=== PATIENT | female | born 1995 | race Hispanic/Latino ===

== ENCOUNTER 2019-12-30 04:54 | Emergency (ER) | payer SELFPAY ==
[~2019-12-30] VITALS: Ht 160 cm; Wt 90.7 kg
[2019-12-30] MEDS ORDERED: SODIUM CHLORIDE 0.9% 1000ML 1,000 ML IV STA (05:08)
--- NOTE | 2019-12-30 05:14 | Emergency Department Note ---
History of Present Illnes History of Present Illness History of Present Illness This is a 24 year old female . Historian: Patient, Significant Other Arrival Mode: Car Onset (how long ago): day(s) Radiation: Reports back Severity: moderate Onset quality: gradual Duration (how long): day(s) (3) Timing of current episode: intermittent Progression: worsening Relieving factors: none Exacerbating factors: none Associated symptoms: Reports denies other symptoms, Reports loss of appetite, Reports nausea/vomiting Treatments prior to arrival: none Past Medical/Family History Physician Review I have reviewed the patient's past medical and family history. Any updates have been documented here. Past Medical History Recent Fever: No Clinical Suspicion of Infectio: No New/Unexplained Change in Ment: No Past Medical History: None Past Surgical History: None Social History Unable to obtain PSH: other (works at [employer]) Smoking Cessation: Never Smoker Counseling Performed: No Any Illegal Drug Use: No TB Exposure/Symptoms: No Physically hurt or threatened: No Family History Family history of heart diseas: No Review of Systems Review of Systems Constitutional: Reports weakness EENTM: Reports no symptoms Cardiovascular: Reports no symptoms Respiratory: Reports no symptoms Gastrointestinal: Reports as per HPI Genitourinary: Reports no symptoms Musculoskeletal: Reports no symptoms Integumentary: Reports no symptoms Neurological: Reports no symptoms Psychological: Reports no symptoms Endocrine: Reports no symptoms Hematological/Lymphatic: Reports no symptoms Physical Exam Related Data Allergies: Coded Allergies: No Known Allergies (Unverified , 12/30/19) Vital signs reviewed: Yes Physical Exam CONSTITUTIONAL Constitutional: Present well-developed, Present well-nourished HENT HENT: Present normocephalic, Present atraumatic, Present oropharynx clear/moist, Present nose normal HENT L/R: Present left ext ear normal, Present right ext ear normal EYES Eyes: Reports PERRL, Reports conjunctivae normal NECK Neck: Present ROM normal PULMONARY Pulmonary: Present effort normal, Present breath sounds normal CARDIOVASCULAR Cardiovascular: Present regular rhythm, Present heart sounds normal, Present capillary refill normal, Present normal rate GASTROINTESTINAL Abdominal: Present soft, Present nontender, Present bowel sounds normal GENITOURINARY Genitourinary: Present exam deferred SKIN Skin: Present warm, Present dry MUSCULOSKELETAL Musculoskeletal: Present ROM normal NEUROLOGICAL Neurological: Present alert, Present oriented x 3, Present no gross motor or sensory deficits PSYCHOLOGICAL Psychological: Present mood/affect normal, Present judgement normal Results Laboratory Lab results reviewed: Yes Laboratory comments UA clear,doubt UTI, WBC high due to n/v Imaging Imaging results reviewed: Yes Impressions No acute Assessment & Plan Medical Decision Making MDM gastritis, enteritis, pancreatitis Reassessment Reassessment doing better, taking PO well Assessment & Plan Final Impression: (1) Gastroenteritis Depart Disposition: HOME, SELF-shelter Meds Active Scripts Mag Hydrox/Al Hydrox/Simeth (MAALOX MAXIMUM STRENGTH SUSP) 355 Ml Oral.susp, 30 ML PO Q6H PRN for ABDOMINAL PAIN, #120 ML Prov:FRANKY MERIDA MD 12/30/19 Ondansetron Hcl* (ZOFRAN*) 4 Mg Tablet, 4 MG SL Q6H PRN for NAUSEA, #14 MG 0 Refills Prov:FRANKY MERIDA MD 12/30/19 Famotidine (FAMOTIDINE) 20 Mg Tab, 1 TAB PO BID, #30 Prov:FRANKY MERIDA MD 12/30/19 Physician Attestation Provider Attestation taking po well, no acute abdomen, pt can be safely d/c FRANKY MERIDA MD Dec 30, 2019 05:14
[2019-12-30] MEDS ORDERED: FAMOTIDINE 20 MG/2 ML VIAL IV ONE ×2 (05:15→05:45)
[2019-12-30] MEDS ORDERED: KETOROLAC TROMETHAMINE 30 MG/ML VIAL IV ONE (05:15)
[2019-12-30] MEDS ORDERED: PROMETHAZINE 25MG/ NS 50ML (IV) IV ONE (05:15)
[2019-12-30] MEDS ORDERED: IOPAMIDOL 370 MG/ML 200 ML INFUS..BTL INJ ONE (05:31)
[2019-12-30] MEDS ORDERED: SODIUM CHLORIDE 0.9% 50ML 50 ML ONE (05:31)
[2019-12-30] MEDS ORDERED: PROMETHAZINE HCL (IM) 25 MG/ML VIAL IM ONE (05:44)
[2019-12-30] MEDS ORDERED: KETOROLAC TROMETHAMINE 30 MG/ML VIAL ONE (05:44)
[2019-12-30] MEDS ORDERED: SODIUM CHLORIDE 0.9% 1000ML 1,000 ML ONE (05:44)
--- NOTE | 2019-12-30 06:47 | Diagnostic Imaging Report ---
EXAM: CT Abdomen and Pelvis WITH contrast INDICATION: ^mid abd pain, look for pancreatitis ^[id number] ^06 COMPARISON: None. TECHNIQUE: Abdomen and pelvis were scanned utilizing a multidetector helical scanner from the lung base to the pubic symphysis after administration of IV contrast. Coronal and sagittal reformations were obtained. Dose modulation, iterative reconstruction, and/or weight based adjustment of the mA/kV was utilized to reduce the radiation dose to as low as reasonably achievable. Routine protocol was performed. Scan was performed when during portal venous phase. IV CONTRAST: 100 mL of Isovue-370 ORAL CONTRAST: Water COMPLICATIONS: None RADIATION DOSE: Total DLP: 907.94 mGy*cm Estimated effective dose: (DLP x 0.015 x size factor) mSv CTDIvol has been reviewed. It is below the limits set by the Radiation Protocol Committee (RPC). FINDINGS: LINES and TUBES: None. LOWER THORAX: Right lower lobe cysts/pneumatoceles. Otherwise, nonremarkable. HEPATOBILIARY: No focal hepatic lesions. No biliary ductal dilation. GALLBLADDER: No radio-opaque stones or sludge. No wall thickening. SPLEEN: No splenomegaly. PANCREAS: No focal masses or ductal dilatation. ADRENALS: No adrenal nodules KIDNEYS/URETERS: Questionable minimal striated nephrogram. No hydronephrosis. No cystic or solid mass lesions. No stones. GI TRACT: No abnormal distention, wall thickening, or evidence of bowel obstruction. Appendix is normal. PELVIC ORGANS/BLADDER: Unremarkable. LYMPH NODES: No lymphadenopathy. VESSELS: Unremarkable. PERITONEUM / RETROPERITONEUM: No free air or fluid. BONES: Unremarkable. SOFT TISSUES: Unremarkable. IMPRESSION: 1. Questionable minimal striated nephrogram which can be seen with mild pyelonephritis in the appropriate clinical context (correlation with urinalysis). 2. Otherwise, no acute inflammatory process in the abdomen/pelvis. Signed by: Dr. Justyn Young MD on 12/30/2019 6:44 AM
[2019-12-30] MEDS ORDERED: FAMOTIDINE20 MG PO (06:48)
[2019-12-30] MEDS ORDERED: MAALOX MAXIMUM355 ML PO (06:48)
[2019-12-30] MEDS ORDERED: ZOFRAN4 MG SL (06:48)
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
== END 2019-12-30 07:01 | disposition home or self-care (01) ==
LOC: FSED 05:10
DX: K52.9 Noninfective gastroenteritis and colitis, unspecified (principal); R11.2 Nausea with vomiting, unspecified; R53.1 Weakness
CPT/HCPCS: 74177; 80053; 81003; 81025; 85025; 96374; 96375; 96376; 99283; J1885; J2550; J7030; Q9967

== ENCOUNTER 2024-11-15 20:06 | Emergency (ER) | payer BC ==
[~2024-11-15] VITALS: Ht 160 cm; Wt 114.3 kg
[~2024-11-15 20:06] MED LIST: FAMOTIDINE20 MG PO; MAALOX MAXIMUM355 ML PO; ZOFRAN4 MG SL
[2024-11-15 20:14] VITALS: PULSE 82; RESP 17; TEMP 97.9
[2024-11-15] MEDS ORDERED: IOPAMIDOL 370 MG/ML 100 ML INFUS..BTL INJ ONE (21:18)
[2024-11-15] MEDS: SODIUM CHLORIDE 0.9% 1000ML 1,000 ML IV ONE (21:40)
[2024-11-15] MEDS: ONDANSETRON HCL INJ 2MG/ML 2ML 2 MG/ML VIAL IV STA (21:41)
[2024-11-15] MEDS: KETOROLAC TROMETHAMINE 30 MG/ML VIAL IV STA (21:41)
[2024-11-15 23:05] VITALS: BP 111/55; PULSE 81; RESP 17; TEMP 98.8; O2SAT 97
== END 2024-11-15 23:05 | disposition home or self-care (01) ==
LOC: FSED 20:20
DX: R10.31 Right lower quadrant pain (principal); N93.8 Other specified abnormal uterine and vaginal bleeding; N92.6 Irregular menstruation, unspecified
CPT/HCPCS: 74177; 99284; J1885; J2405; J7030; Q9967